=== PATIENT | female | born 1950 | race Caucasian/White ===

== ENCOUNTER 2018-04-14 17:39 | Outpatient (CLI) | payer OTHER | END 2018-04-14 18:13 | disposition home or self-care (01) | LOC: RAD 17:39 | DX: R91.8 Other nonspecific abnormal finding of lung field (principal) ==

== ENCOUNTER 2019-10-04 15:10 | Outpatient (CLI) | payer OTHER | END 2019-10-04 15:13 | disposition home or self-care (01) | LOC: RAD 15:10 | DX: R07.89 Other chest pain (principal); H90.0 Conductive hearing loss, bilateral ==

== ENCOUNTER → 2022-09-16 08:10 | Outpatient (CLI) | payer OTHER | END | disposition home or self-care (01) | LOC: LAB 08:10 | PROVIDERS: ATTEND Internal Medicine | DX: U07.1 COVID-19 (principal); B34.1 Enterovirus infection, unspecified ==

== ENCOUNTER → 2022-09-16 | Outpatient (CLI) | payer OTHER | END | disposition home or self-care (01) | LOC: NUCLEAR 07:00 | PROVIDERS: ATTEND Internal Medicine | DX: I10 Essential (primary) hypertension (principal); M81.0 Age-related osteoporosis without current pathological fracture | CPT/HCPCS: 78452; 93017; A9500 ==